=== PATIENT | male | born 1955 | race Caucasian/White ===

== ENCOUNTER 2022-12-17 05:49 | Outpatient (REF) | payer MEDICARE, MEDICAID, SELFPAY ==
[2022-12-17 05:55] LABS: MANUAL DIFF FLAG NO
[2022-12-17 06:18] LABS: Basophils Absolute Auto 0.1 X10*3/uL (0.0-0.2); Basophils Percent Auto 0.7 % (0-2); Eosinophils Absolute Auto 0.1 X10*3/uL (0.0-0.4); Eosinophils Percent Auto 1.8 % (0-4); Hematocrit 36.9 % (42.0-52.0); Hemoglobin 12.3 g/dl (14.0-18.0); Imm Gran Abs Auto 0.03 X10*3/uL (0.00-0.03); Imm Gran Pct Auto 0.4 % (0.0-0.4); Lymphocytes Percent Auto 13.4 % (20-40); Mean Corpuscular HGB Conc 33.3 g/dl (31.0-36.0); Mean Corpuscular Hemoglobin 29.2 pg (27.0-33.0); Mean Corpuscular Volume 87.6 fL (80.0-98.0); Mean Platelet Volume 10.2 fL (9.4-12.4); Monocytes Absolute Auto 1.1 X10*3/uL (0.1-1.2); Monocytes Percent Auto 15.5 % (2-11); Neutrophils Percent Auto 68.2 % (45-73); Platelet Count 213 X10*3/uL (160-400); Red Blood Count 4.21 X10*6/uL (4.60-5.80); Red Cell Distribution Width 17.2 % (11.0-16.0); White Blood Count 7.3 X10*3/uL (4.8-10.8)
[2022-12-17 06:46] LABS: Anion Gap 17 (12-20); Blood Urea Nitrogen 31 mg/dL (9-16); C Reactive Protein 3.48 mg/dL (< or = 0.50); Calcium 9.5 mg/dL (8.4-10.2); Carbon Dioxide 23 mmol/L (22-29); Chloride 90 mmol/L (96-108); Glucose Random 149 mg/dL (60-115); Sodium 125 mmol/L (135-145)
[2022-12-17 06:51] LABS: Erythrocyte Sedimentation Rate 2 MM/HR (0-15)
[2022-12-17 07:38] LABS: Estimated Glomerular Filt Rate 10
[2022-12-17 15:20] LABS: Anion Gap 16 (12-20); Blood Urea Nitrogen 33 mg/dL (9-16); Calcium 9.3 mg/dL (8.4-10.2); Carbon Dioxide 26 mmol/L (22-29); Chloride 89 mmol/L (96-108); Estimated Glomerular Filt Rate 10; Glucose Random 54 mg/dL (60-115); Sodium 127 mmol/L (135-145)
== END 2022-12-17 05:50 | disposition home or self-care (01) ==
LOC: HO.MMNH2L 05:49
PROVIDERS: Visit Provider Family Medicine
DX: M86.9 Osteomyelitis, unspecified (principal); Z79.899 Other long term (current) drug therapy
CPT/HCPCS: 36415; 80048; 80202; 85025; 85652; 86140

== ENCOUNTER 2022-12-18 00:50 | Emergency (ER) | payer MEDICARE, MEDICAID, SELFPAY ==
[2022-12-18] VITALS (7 sets, daily range): BP systolic 89–133; BP diastolic 22–90; PULSE 83–103; RESP 12–20; O2SAT 95–96; BMI 24.8
[2022-12-18 01:26] LABS: MANUAL DIFF FLAG NO
[2022-12-18 01:28] LABS: Basophils Percent Auto 0.4 % (0-2); Eosinophils Absolute Auto 0.2 X10*3/uL (0.0-0.4); Eosinophils Percent Auto 2.2 % (0-4); Imm Gran Abs Auto 0.04 X10*3/uL (0.00-0.03); Imm Gran Pct Auto 0.6 % (0.0-0.4); Lymphocytes Absolute Auto 0.5 X10*3/uL (1.2-4.9); Lymphocytes Percent Auto 7.7 % (20-40); Mean Corpuscular HGB Conc 34.3 g/dl (31.0-36.0); Mean Corpuscular Hemoglobin 29.9 pg (27.0-33.0); Mean Corpuscular Volume 87.1 fL (80.0-98.0); Mean Platelet Volume 10.2 fL (9.4-12.4); Monocytes Absolute Auto 1.1 X10*3/uL (0.1-1.2); Monocytes Percent Auto 15.6 % (2-11); NRBC Pct Auto 0.3 /100WBC (0.0-0.2); Neutrophils Absolute Auto 4.9 x10*3/uL (2.0-8.3); Neutrophils Percent Auto 73.5 % (45-73); Platelet Count 230 X10*3/uL (160-400); Red Blood Count 4.02 X10*6/uL (4.60-5.80); White Blood Count 6.7 X10*3/uL (4.8-10.8)
--- NOTE | 2022-12-18 01:42 | ED.GENADULT ---
HPI - General Adult General Chief complaint: General Medical Stated complaint: hypotensive Time Seen by Provider: 12/18/22 01:28 History of Present Illness HPI narrative: Patient is a 67-year-old male with a history of end-stage renal disease currently on dialysis Saturday history of coronary artery disease status post bypass status post TAVR history of V-tach currently on amiodarone history of peripheral vascular disease. History of osteomyelitis patient has been on antibiotics. History of severe peripheral vascular disease, with low blood pressure noted in the past. Patient was recently at [facility] [place] from December 02 pill December 15. Discharge 2 days prior. Was at [facility] re rehab had an episode of nausea, subsequently patient was noted to have low blood pressure. Sent to the hospital for further evaluation. Patient has no specific complaints. No fever no chills. Is no longer nauseous. No vomiting. No diarrhea. Patient from rehab. There has been no changes in recent medication. There is no coughing no upper respiratory symptoms. Related Data Allergies Allergy/AdvReac Type Severity Reaction Status Date / Time No Known Allergies Allergy Verified 12/18/22 01:02 Review of Systems Review of Systems: Positive generalized malaise Yes all other systems are reviewed and are negative PMFSH Past Medical History Attestation statement: The following information was validated with the patient. Social History Social History Alcohol intake: former Smoked in Last 30 Days: No Advance Directives: No Advance Directives Information Provided: Yes Physical Exam ED Vital Signs: Vital Signs - 24 hr 12/18/22 00:57 12/18/22 02:00 12/18/22 02:06 Pulse Rate 92 96 Respiratory Rate 20 17 Blood Pressure 98/49 L 101/22 L Pulse Oximetry 95 95 Oxygen Delivery Method Room Air Room Air 12/18/22 03:41 12/18/22 03:58 12/18/22 05:15 Pulse Rate 83 96 Respiratory Rate 15 12 14 Blood Pressure 89/33 L 92/66 Pulse Oximetry Oxygen Delivery Method 12/18/22 05:56 Pulse Rate 103 H Respiratory Rate 14 Blood Pressure 103/42 L Pulse Oximetry 96 Oxygen Delivery Method Room Air BMI result Body Mass Index 24.8 Chronically sick-appearing male, Appearance: Alert. Oriented X3. No acute distress. Eyes: Pupils equal, round and reactive to light. ENT: Pharynx normal. Neck: Normal inspection. Neck supple. No lymph nodes noted. No crepitus CVS: Normal heart rate and rhythm. Pulses normal. Normal S1 and S2 Respiratory: No respiratory distress. Breath sounds normal. No Wheezing. No rales Abdomen: Soft and nontender. No rigidity. No distention. good BS x4 Skin: Skin warm and dry. Normal skin color. Normal skin turgor. Extremities: No lower extremity edema. No Lacerations. No Rash Neuro: Oriented X 3. No motor deficit. No sensory deficit. . No slurred speech Medications Administered Discontinued Medications Generic Name Dose Route Start Last Admin Trade Name Freq PRN Reason Stop Dose Admin Midodrine 10 mg 12/18/22 03:36 12/18/22 04:10 Midodrine Hcl 10 Mg Tablet PO 12/18/22 03:37 10 mg ONCE ONE Administration Medical Decision Making Medical Decision Making MDM Narrative: Patient was admitted previously for hypotension. Had an extensive workup at [facility] [place] for possible osteomyelitis. Today presented with low blood pressure again. Patient's EKG looks like he is in a fib pattern with a left bundle branch block. Patient's old record was obtained from [facility] [place]. This appears to be old. Patient was placed on Midodrine 20 mg 3 times a day. Old record from [facility] showed patient has vascular insufficiency making blood pressure in the upper extremity inaccurate. Preferred site of blood pressure check is the right thigh. Patient's blood pressure there was up and down. One reading was 110/20 another reading will be 80/40 a 3rd reading would be only palpable. Unsure about the etiology of these hypotension. Patient's defibrillator was checked. There is no evidence of any arrhythmia. Patient's potassium was less than 5 no evidence for hypokalemia. Patient's pH is normal normal anion gap. Grossly no evidence of sepsis. He has been compliant with his dialysis. Patient's case discussed with the pillowcase turner and the hospitalist at [facility] [place]. Case was discussed with [facility] [place] transfer line. Accepted patient for further evaluation and monitoring. Differential Diagnosis Differential Diagnoses: The differential diagnosis associated with the presentation includes Infection, baseline hypotension secondary to end-stage renal disease, peripheral vascular disease, coronary artery disease Consult Healthcare Provider Management of the patient was discussed with: Hospitalist Multi Share Program Coordinator at [facility], [facility] transfer line Lab Data 12/18/22 01:22 12/18/22 01:22 Labs: Lab Results 12/18/22 12/18/22 12/18/22 Range/Units 01:22 01:22 02:19 WBC 6.7 (4.8-10.8) X10*3/uL RBC 4.02 L (4.60-5.80) X10*6/uL Hgb 12.0 L (14.0-18.0) g/dl Hct 35.0 L (42.0-52.0) % MCV 87.1 (80.0-98.0) fL MCH 29.9 (27.0-33.0) pg MCHC 34.3 (31.0-36.0) g/dl RDW 17.0 H (11.0-16.0) % Plt Count 230 (160-400) X10*3/uL MPV 10.2 (9.4-12.4) fL Immature Gran % (Auto) 0.6 H (0.0-0.4) % Neut % (Auto) 73.5 H (45-73) % Lymph % (Auto) 7.7 L (20-40) % [place] % (Auto) 15.6 H (2-11) % Eos % (Auto) 2.2 (0-4) % Baso % (Auto) 0.4 (0-2) % Lymph # (Auto) 0.5 L (1.2-4.9) X10*3/uL [place] # (Auto) 1.1 (0.1-1.2) X10*3/uL Eos # (Auto) 0.2 (0.0-0.4) X10*3/uL Baso # (Auto) 0.0 (0.0-0.2) X10*3/uL Abs Immat Gran (auto) 0.04 H (0.00-0.03) X10*3/uL Absolute Neuts (auto) 4.9 (2.0-8.3) x10*3/uL Absolute Nucleated RBC 0.020 H (0.0-0.012) X10*3/uL Nucleated RBC % (auto) 0.3 H (0.0-0.2) /100WBC VBG pH 7.39 (7.32-7.43) VBG pCO2 44 mmHg VBG pO2 65 mmHg VBG HCO3 27 H (22-26) mmol/L VBG O2 Saturation 89.0 % VBG Base Excess 2.0 mmol/L Sodium 126 L (135-145) mmol/L Potassium 4.5 (3.3-5.1) mmol/L Chloride 91 L (96-108) mmol/L Carbon Dioxide 22 (22-29) mmol/L Anion Gap 18 (12-20) BUN 35 H (9-16) mg/dL Creatinine 6.16 H* (0.5-1.4) mg/dL Estim Creat Clear Calc 12.9 Estimated GFR 9 Random Glucose 148 H (60-115) mg/dL Calcium 9.3 (8.4-10.2) mg/dL Magnesium 2.5 (1.6-2.6) mg/dL Total Bilirubin 1.9 H (0.0-1.0) mg/dL Direct Bilirubin 1.2 H (0.0-0.5) mg/dL AST 38 H (5-37) U/L ALT < 5 (0-40) U/L Alkaline Phosphatase 176 H (39-117) U/L Total Protein 6.0 L (6.5-8.0) g/dL Albumin 2.8 L (3.5-5.0) g/dL Lipase 10 (8-78) U/L COVID-19 (NAYANA) (Negative) COVID-19 Clin Com 12/18/22 Range/Units 04:13 WBC (4.8-10.8) X10*3/uL RBC (4.60-5.80) X10*6/uL Hgb (14.0-18.0) g/dl Hct (42.0-52.0) % MCV (80.0-98.0) fL MCH (27.0-33.0) pg MCHC (31.0-36.0) g/dl RDW (11.0-16.0) % Plt Count (160-400) X10*3/uL MPV (9.4-12.4) fL Immature Gran % (Auto) (0.0-0.4) % Neut % (Auto) (45-73) % Lymph % (Auto) (20-40) % [place] % (Auto) (2-11) % Eos % (Auto) (0-4) % Baso % (Auto) (0-2) % Lymph # (Auto) (1.2-4.9) X10*3/uL [place] # (Auto) (0.1-1.2) X10*3/uL Eos # (Auto) (0.0-0.4) X10*3/uL Baso # (Auto) (0.0-0.2) X10*3/uL Abs Immat Gran (auto) (0.00-0.03) X10*3/uL Absolute Neuts (auto) (2.0-8.3) x10*3/uL Absolute Nucleated RBC (0.0-0.012) X10*3/uL Nucleated RBC % (auto) (0.0-0.2) /100WBC VBG pH (7.32-7.43) VBG pCO2 mmHg VBG pO2 mmHg VBG HCO3 (22-26) mmol/L VBG O2 Saturation % VBG Base Excess mmol/L Sodium (135-145) mmol/L Potassium (3.3-5.1) mmol/L Chloride (96-108) mmol/L Carbon Dioxide (22-29) mmol/L Anion Gap (12-20) BUN (9-16) mg/dL Creatinine (0.5-1.4) mg/dL Estim Creat Clear Calc Estimated GFR Random Glucose (60-115) mg/dL Calcium (8.4-10.2) mg/dL Magnesium (1.6-2.6) mg/dL Total Bilirubin (0.0-1.0) mg/dL Direct Bilirubin (0.0-0.5) mg/dL AST (5-37) U/L ALT (0-40) U/L Alkaline Phosphatase (39-117) U/L Total Protein (6.5-8.0) g/dL Albumin (3.5-5.0) g/dL Lipase (8-78) U/L COVID-19 (NAYANA) Negative (Negative) COVID-19 Clin Com See Note Independent Interpretation I performed an independent interpretation of an: EKG Interpretation: AFib with a left bundle branch block Radiology Impression Discussion of test interpretation with radiology: I have reviewed the radiologist's reading. Chronic Conditions Patient?s care impacted by: Diabetes and Hypertension Atrial fibrillation peripheral vascular disease end-stage renal disease Social Determinants Patient?s care significantly limited by Social Determinants of Health including: Other Social Determinant of Health Critical Care Time Critical Care Time Critical Care Time: Yes Total Critical Care Time: 60 Attestation: I have personally provided 40 minutes of critical care time exclusive of time spent on separately billable procedures. Time includes review of lab data, radiology results, discussion with consultants, and monitoring for potential decompensation. Interventions were performed as documented above Discharge Plan Discharge Clinical Impression: Acute hypotension Patient Disposition: [facility] Transfer Details: [facility]
--- NOTE | 2022-12-18 01:47 | ECG_ITS ---
Test Reason : DIZZINESS Blood Pressure : / mmHG Vent. Rate : 095 BPM Atrial Rate : 032 BPM P-R Int : 000 ms QRS Dur : 144 ms QT Int : 454 ms P-R-T Axes : 000 -47 138 degrees QTc Int : 570 ms Atrial fibrillation Left axis deviation Non-specific intra-ventricular conduction block Cannot rule out Anteroseptal infarct , age undetermined Abnormal ECG No previous ECGs available Referred By: Yamile Stockton Electronically Signed By:HEMANT GRIFFITHS
[2022-12-18 01:51] LABS: Alanine Aminotransferase < 5 U/L (0-40); Albumin Level 2.8 g/dL (3.5-5.0); Alkaline Phosphatase 176 U/L (39-117); Anion Gap 18 (12-20); Aspartate Amino Transferase 38 U/L (5-37); Bilirubin Direct 1.2 mg/dL (0.0-0.5); Bilirubin Total 1.9 mg/dL (0.0-1.0); Blood Urea Nitrogen 35 mg/dL (9-16); Calcium 9.3 mg/dL (8.4-10.2); Carbon Dioxide 22 mmol/L (22-29); Chloride 91 mmol/L (96-108); Creatinine Clr Calc Pharmacy 12.9; Estimated Glomerular Filt Rate 9; Glucose Random 148 mg/dL (60-115); Lipase 10 U/L (8-78); Potassium 4.5 mmol/L (3.3-5.1); Sodium 126 mmol/L (135-145)
[2022-12-18 02:02] LABS: Magnesium 2.5 mg/dL (1.6-2.6)
--- NOTE | 2022-12-18 02:24 | MHC.EDTECH ---
Call out to [facility] Meter Changes Records Clerk spoke to Marielena who informed me she received the interrogation notification, Marielena will fax over report
[2022-12-18 02:25] LABS: Venous Blood Gas Refer to POC result
[2022-12-18 02:28] LABS: VBG HCO3 27 mmol/L (22-26); VBG pCO2 44 mmHg; VBG pH 7.39 (7.32-7.43); VBG pO2 65 mmHg
[2022-12-18] MEDS: Midodrine HCl 10 MG TABLET PO (04:10)
--- NOTE | 2022-12-18 04:19 | MHC.EDTECH ---
Call out [facility] @[phone] spoke to Kayy who told us Jace (local rep) will call us shortly Jace called @[phone] and spoke to
[2022-12-18 04:29] LABS: COVID-19 Test Negative (Negative); IDNOW Serial# BCCEAD1C
--- NOTE | 2022-12-18 06:10 | MHC.EDTECH ---
Call out to [facility] Transfer line @[phone]
--- NOTE | 2022-12-18 06:19 | PC.NURSE ---
pt to be a transfer out to [facility] for further evaluation and work up of chronic low blood pressures . pt has multiple co morbidities and was recently a patient at [facility] in the icu for low pressures/inaccurate BP readings. pt has poor perfusion/PAD/ multiple other chronic issues with false BP readings on multiple extremities per records obtained from [facility] visits. pt is A&Ox4, speaking clear full sentences, offers no complaints or pain and is in no apparent distress. mentating well. BP's vary in ED with diastolic readings very low. #20g iv RAC placed. 10mg midodrine po given. medical secretary and MD currently in the process of trying to transfer patient out to [facility]. waiting for bed assignment/nurse to nurse # to transfer. will CTM
--- NOTE | 2022-12-18 06:47 | MHC.EDTECH ---
bed assignment [facility] [address] Bed 18 Nurse to [phone]
--- NOTE | 2022-12-18 06:50 | MHC.EDTECH ---
Call out to [facility] @[phone] spoke to Twan to book to ALS transport to [facility].
== END 2022-12-18 07:45 | disposition short-term general hospital (02) ==
PROVIDERS: Emergency Provider Emergency Medicine Emergency Medical Services
DX: I95.9 Hypotension, unspecified (principal); R94.31 Abnormal electrocardiogram [ECG] [EKG]; Z20.822 Contact with and (suspected) exposure to COVID-19; N18.6 End stage renal disease; Z99.2 Dependence on renal dialysis
CPT/HCPCS: 36415; 80048; 80076; 82803; 83690; 83735; 85025; 87635; 93005; 99283; 99285